=== PATIENT | female | born 2000 | race Hispanic/Latino ===

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

== ENCOUNTER 2019-05-16 23:20 | Observation (INO) | payer MEDICAID ==
[~2019-05-16] VITALS: Ht 157.5 cm; Wt 39.9 kg
[2019-05-17] MEDS: LACTATED RINGERS 1000ML 1,000 ML IV SCH ×3 (00:24→09:43)
[2019-05-17 00:45] LABS: APPEARANCE,URINE Cloudy (CLEAR); BILIRUBIN,URINE Negative (NEGATIVE); COLOR,URINE Dark Yellow (YELLOW); GLUCOSE, URINE (UA) Negative (NEGATIVE); KETONES,URINE >=160 mg/dL (NEGATIVE); LEUKOCYTE ESTERASE ,URINE Negative (NEGATIVE); NITRATE,URINE Positive (NEGATIVE); OCCULT BLOOD,URINE Nonhemolyzed Trace (NEGATIVE); PH,URINE 5.5 (5.0-8.0); PROTEIN,URINE POS 1+ mg/dL (NEGATIVE)
[2019-05-17 00:53] LABS: BACTERIA,URINE Moderate /HPF (None Seen); MUCUS,URINE Few LPF (None Seen); RBC,URINE 0-1 /HPF (0-1); SQUAMOUS EPITHELIAL CELL,UR Moderate /HPF (0-2); WBC,URINE 0-1 /HPF (0-1)
[2019-05-17 00:55] LABS: AMPHET/METH SCREEN,URINE NEGATIVE (NEGATIVE); BARBITURATE SCREEN, URINE NEGATIVE (NEGATIVE); BENZODIAZEPINES SCREEN,URINE NEGATIVE (NEGATIVE); CANNABINOID SCREEN,URINE NEGATIVE (NEGATIVE); COCAINE SCREEN,URINE NEGATIVE (NEGATIVE); OPIATE SCREEN,URINE NEGATIVE (NEGATIVE); PHENCYCLIDINE SCREEN,URINE NEGATIVE (NEGATIVE)
[2019-05-17 01:26] VITALS: BP 105/66
[2019-05-17] MEDS ORDERED: PREN1TAB80 PO (01:29)
[2019-05-17] MEDS ORDERED: CEFTRIAXONE SODIUM 1 GM IVP ONE ×2 (01:30→09:45)
[2019-05-17 03:00] VITALS: BP 102/55
[2019-05-17 07:49] VITALS: BP 99/51
[2019-05-17 09:10] LABS: HEMATOCRIT 30.3 % (36-48); MEAN CORPUSCULAR HEMOGLOBIN 29.1 pg (27.0-33.0); MEAN CORPUSCULAR VOLUME 88.1 fL (80-100); PLATELET COUNT (AUTO) 175 K/uL (130-400); RED BLOOD CELL COUNT(AUTO) 3.44 MIL/uL (4.00-5.50); RED CELL DISTRIBUTION WIDTH 14.2 % (11.0-15.5); WHITE BLOOD COUNT (AUTO) 5.4 K/uL (4.8-10.8)
--- NOTE | 2019-05-17 09:30 | NUR ---
PHYSICIAN SHAYLEE ORTIZ AT BEDSIDE TO ASSESS PATIENT AND DISCUSS PLAN OF CARE. PATIENT GIVEN INFORMATION FOR DISCHARGE. NEW ORDERS RECEIVED AND WILL BE CARRIED OUT. PATIENT WILL BE DISCHARGED TODAY 05-17-2019
[2019-05-17] MEDS ORDERED: FLU VACC QS2019-20 36MOS UP/PF 60 MCG/0.5 ML ML IM ONE (11:15)
[2019-05-17 11:27] VITALS: BP 91/59
--- NOTE | 2019-05-17 12:30 | NUR ---
RDSCREEN SECONDARY TO LOW BMI Pt tolerating Regular diet order with no report of GI distress, Pt reports eating well. RD discussed Nutrition recommendations for . Pt with no nutrition concerns and reports healthy weight gain as per her doctor. RD provided reference materials and handouts for healthy nutrition recommendations.
--- NOTE | 2019-05-17 12:45 | NUR ---
PAYROLL CLERK CONSULT PATIENT GIVEN PAYROLL CLERK CONSULT DUE TO LOW BMI. PATIENT GIVEN PAMPHLET AND INFORMATION ON PROPER NUTRITION DURING .
--- NOTE | 2019-05-17 14:35 | NUR ---
DISCHARGE INSTRUCTIONS DISCHARGE INSTRUCTIONS AND EXIT CARE GIVEN TO PATIENT. IV DISCONTINUED. PATIENT STATED SHE HAD NO PAIN OR ANY FURTHER QUESTIONS AT THIS TIME.
--- NOTE | 2019-05-17 15:25 | NUR ---
PATIENT DISCHARGED PATIENT WHEELED OUT VIA WHEELCHAIR TO EMERGENCY ROOM ENTRANCE. PATIENT ACCOMPANIED BY MOTHER AND SON. PATIENT TOLERATED WELL STATING SHE HAD NO PAIN OR DISCOMFORT.
== END 2019-05-17 15:25 | disposition home or self-care (01) ==
LOC: EDH 23:20 → LDH 23:21 → WSH 05-17 02:25
PROVIDERS: ADMIT Obstetrics & Gynecology; ATTEND Obstetrics & Gynecology
DX: O23.42 Unspecified infection of urinary tract in pregnancy, second trimester (principal); Z23 Encounter for immunization; Z3A.20 20 weeks gestation of pregnancy
CPT/HCPCS: 36415; 80305; 81001; 85027; 87077; 87088; 87186; 90471; 96360; 96361; 96374; 96376; G0378; J0696; Q2035